=== PATIENT | female | born 1970 | race Caucasian/White ===

== ENCOUNTER 2017-04-26 09:56 | Emergency (ER) | payer OTHER ==
[2017-04-26 10:06] VITALS: TEMP 97.5
--- NOTE | 2017-04-26 11:41 | EDPHY ---
H & P Smoking Status: Never smoked Time Seen by Provider: 04/26/17 10:40 HPI/ROS: CHIEF COMPLAINT: Foreign body ingestion HISTORY OF PRESENT ILLNESS: 46-year-old female presents to the emergency department with concerns about swelling her dental appliance. The patient is from [place] and placed her temporary dental appliance in her pill box and this morning when she went to take her medication, she accidentally swallowed her dental appliance. She states that she tried to forcefully gag herself in order throat up, however this was not successful. She currently has no complaints. No abdominal pain or chest pain. No difficulty breathing. No bright red blood per rectum. No rectal pain. REVIEW OF SYSTEMS: Constitutional: No fever, no chills. Eyes: No double or blurry vision. ENT: No sore throat. Respiratory: No cough, no shortness of breath. Cardiac: No chest pain. Gastrointestinal: No abdominal pain, vomiting or diarrhea. Genitourinary: No dysuria. Musculoskeletal: No neck or back pain. Skin: No rashes. Neurological: No headache. (Janet Mendosa) Past Medical/Surgical History: Negative (Janet Mendosa) Social History: , visiting from [place] (Janet Mendosa) Physical Exam: General Appearance: Alert, no distress. Vital signs are stable. She is in no apparent distress. Eyes: Pupils equal and round. Extraocular motions are all intact. ENT: Mouth: Mucous membranes moist. No visible foreign body. Respiratory: No wheezing, rhonchi, or rales, lungs are clear to auscultation. Cardiovascular: Regular rate and rhythm. Gastrointestinal: Abdomen is soft and nontender, no masses, no rebound or guarding, bowel sounds normal. Neurological: Alert and oriented x 3, cranial nerves II through XII grossly intact Skin: Warm and dry, no rashes. Musculoskeletal: Nontender to palpate along the cervical, thoracic or lumbar spine. Neck is supple. Extremities: Full range of motion and no peripheral edema. Psychiatric: Patient is oriented X 3, there is no agitation. (Janet Mendosa) Constitutional: Initial Vital Signs Temperature (C) 36.4 C 04/26/17 10:03 Heart Rate 82 04/26/17 10:03 Respiratory Rate 20 04/26/17 10:03 Blood Pressure 121/75 H 04/26/17 10:03 O2 Sat (%) 99 04/26/17 10:03 O2 Delivery Mode Room Air Allergies/Adverse Reactions: Sulfa (Sulfonamide Antibiotics) Allergy (Verified 04/26/17 10:03) Home Medications: Medication Instructions Recorded Ambien 5MG (*) 04/26/17 Cymbalta 04/26/17 Medical Decision Making ED Course/Re-evaluation: 46-year-old female presents to the emergency department after accidental foreign body ingestion. Patient has no complaints. The foreign object was not visualized on exam. The patient has no abdominal pain. No blood in her stool. I do not think x-rays would be helpful since the patient is completely asymptomatic. She was given a hat to use with bowel movements and she will inspect her stool to make sure that this is indeed cleared. She was instructed to return if she developed abdominal pain, blood in her stool or if she has any other concerns. She was comfortable with this plan. Her was at bedside who also verbalized understanding and agreed. (Janet Mendosa) Differential Diagnosis: Including but not limited to accidental foreign body ingestion, perforated peritoneum (Janet Mendosa) Other Provider: The patient was evaluated and managed by the Physician Rough Patcher/ Nurse Practitioner. My co-signature indicates that I have reviewed this chart and I agree with the findings and plan of care as documented. I am the secondary supervising physician. (Kenia Alvarez) Departure - Departure Disposition: Home, Routine, Self-Care Clinical Impression: Foreign body ingestion Condition: Good Instructions: Foreign Body Ingestion (ED) Additional Instructions: Return to the emergency department if you develop blood in your stool, abdominal pain, difficulty breathing, or if you feel worse in any way. Diet and activity as tolerated. Follow up with your dentist when he returns home to [place]. Referrals: JOE SHARPE [Other] - As per Instructions
[2017-04-26 11:52] VITALS: BP 118/70; PULSE 76; RESP 16; O2SAT 98
== END 2017-04-26 11:51 | disposition home or self-care (01) ==
DX: T18.9XXA Foreign body of alimentary tract, part unspecified, initial encounter (principal); X58.XXXA Exposure to other specified factors, initial encounter